=== PATIENT | male | born 1985 | race Caucasian/White ===

== ENCOUNTER → 2018-01-02 08:26 | Outpatient (CLI) | payer OTHER, SELFPAY ==
[2018-01-02 08:50] LABS: Liquefaction Semen YES (YES)
[2018-01-02 08:51] LABS: PH Semen 8 (7-8)
[2018-01-02 08:52] LABS: Volume Semen 8 (1.0-5.0)
[2018-01-02 09:03] LABS: Sperm Motility 70% % Motile
[2018-01-02 09:17] LABS: Sperm Count 112 x10^6/mL (20-150)
[2018-01-02 09:27] LABS: Sperm Morphology 63 %ABNORM (0-30)
== END ==
PROVIDERS: Visit Provider Family Medicine
DX: N46.9 Male infertility, unspecified (principal)
CPT/HCPCS: 89320

== ENCOUNTER → 2023-08-27 15:05 | Outpatient (CLI) | payer OTHER, SELFPAY ==
--- NOTE | 2023-08-27 15:12 | DI.RAD.S_ITS ---
PROCEDURE: XR LUMBAR SPINE 2-3V INDICATIONS: BACK PAIN TECHNIQUE: 3 views of the lumbar spine were acquired. COMPARISON: None. FINDINGS: Bones: 5 [id number] vertebrae are present. Mild straightening of the normal lumbar lordosis. Facet arthropathy at L4-5 and L5-S1. Mild disc height loss at L4-5. No vertebral body compression fractures. No suspicious bony lesions. Soft tissues: Overlying bowel gas pattern is normal. No suspicious soft tissue calcifications. IMPRESSION: No acute bony abnormality. Mild degenerative changes of the lower lumbar spine. Dictated by: Enrico Pierre M.D. on 08/27/2023 at 16:07 Approved by: Enrico Pierre M.D. on 08/27/2023 at 16:08
== END ==
PROVIDERS: Referring Provider Family Medicine; Visit Provider Family Medicine
DX: M47.26 Other spondylosis with radiculopathy, lumbar region (principal); M47.27 Other spondylosis with radiculopathy, lumbosacral region
CPT/HCPCS: 72100